=== PATIENT | male | born 1995 | race Caucasian/White ===

== ENCOUNTER 2018-06-13 14:24 | Emergency (ER) | payer SELFPAY ==
[~2018-06-13] VITALS: Ht 175.3 cm; Wt 95.9 kg
[2018-06-13 14:50] VITALS: BP 160/97
== END 2018-06-13 17:04 | disposition home or self-care (01) ==
LOC: EMS 14:25
DX: R11.2 Nausea with vomiting, unspecified (principal); Z53.21 Procedure and treatment not carried out due to patient leaving prior to being seen by health care provider